=== PATIENT | male | born 1980 | race Caucasian/White ===

== ENCOUNTER 2020-10-15 19:56 | Emergency (ER) | payer BC ==
[2020-10-15] MEDS ORDERED: Lactated Ringers 1,000 ML IV ONE (20:25)
[2020-10-15] MEDS ORDERED: Morphine 4 MG/ML Syringe IVPUSH ONE (20:25)
[2020-10-15] MEDS ORDERED: Piperacillin/Tazobactam 4.5 GM in Sodium Chloride 0.9% 100 ML IV ONE (20:25)
[2020-10-15 20:44] LABS: BLOOD UREA NITROGEN,BUN 11 mg/dL (7.0-18.0); CARBON DIOXIDE,CO2 26.5 mmol/L (21.0-32.0); CHLORIDE,CL 100 mmol/L (98-107); GLUCOSE RANDOM 127 mg/dL (74-106); POTASSIUM,K 4.1 mmol/L (3.5-5.1); SODIUM,NA 135 mmol/L (136-148)
[2020-10-15 21:26] VITALS: BP 126/71; PULSE 86
--- NOTE | 2020-10-15 21:43 | EDM.PDOC ---
ED HPI GENERAL MEDICAL PROBLEM - General Chief Complaint: Abdominal Pain Stated Complaint: CT SCAN SHOWING DIVERTICULITIS, RHULE REFFERAL Time Seen by Provider: 10/15/20 20:07 - History of Present Illness INITIAL COMMENTS - FREE TEXT/NARRATIVE: CHIEF COMPLAINT(S): Abdominal pain HISTORY OF PRESENT ILLNESS: This is a 40-year-old man with a past medical history of diverticulosis who comes to the emergency department with a chief complaint of abdominal pain. The patient states that for the last 7 days he has been experiencing abdominal pain in the left lower quadrant. He states that initially for 2 to 3 days it was intermittent and not as sharp as it is right now. He denies any melena, nausea, hematochezia, hematemesis or bilious emesis. He states that starting on day 4 up until today the pain has become more consta nt. He currently rates his pain as 6 out of 10 and describes it as crampy and sharp. He denies any fevers or chills. He states that the pain is better when he sits still and he did take Advil and was using a heating pad which did help. He denies any radiation of this pain. He states that he went to see his primary care physician today who ordered an outpatient CT and was called outpatient to come to the emergency department as they found a diverticulitis with abscess. He otherwise feels well. Last meal was at 6:45 PM 10/15/20 REVIEW OF SYSTEMS: Constitutional: Denies fever, chills. Eyes: Denies eye pain Ears, Nose, Mouth, & Throat: Denies earache Cardiovascular: Denies chest pain Respiratory: Denies shortness of breath Gastrointestinal: Positive for left lower quadrant pain. Denies nausea, vomiting, diarrhea, hematochezia, melena, hematemesis, bilious emesis Genitourinary: Denies hematuria Skin:Denies a rash MSK: Denies joint pain Neurological: Denies blurred vision Psychiatric: Denies depression PAST MEDICAL HISTORY: As per history of present illness and as reviewed below otherwise noncontributory. SURGICAL HISTORY: As per history of present illness and as reviewed below otherwise noncontributory. SOCIAL HISTORY: As per history of present illness and as reviewed below otherwise noncontributory. FAMILY HISTORY: As per history of present illness and as reviewed below otherwise noncontributory. EXAMINATION OF ORGAN SYSTEMS/BODY AREAS: Constitutional: Blood pressure is 122/80, heart rate 104, respiratory rate 18 with an oxygen saturation of 98% on room air. Temperature 37.6 General: Overall well-appearing man who is in no acute distress Psychiatric: Appropriate mood and affect. Eyes: No scleral icterus or conjunctival erythema ENMT: Moist mucous membranes. No pharyngeal erythema Cardiovascular: Regular, rate, and rhythm. No gallops, murmurs, or rubs. Bilateral upper extremity pulses symmetric and intact. No peripheral edema. No JVD. Respiratory: Lungs clear to auscultation bilaterally. No wheezes, rales, or rhonchi. Gastrointestinal: Soft, nondistended, tenderness to palpation in the left lower quadrant without any rebound or guarding. Negative Molina's and McBurney's. Normoactive bowel sounds Genitourinary: No suprapubic tenderness Musculoskeletal: Normal range of motion. Skin: No lesions or abrasions. Neurological: Alert, GCS 15 MEDICAL DECISION MAKING AND COURSE IN THE ED WITH INTERPRETATION/REVIEW OF DIAGNOSTIC STUDIES: This is a 40-year-old with a past medical history of diverticulosis who comes to the emergency department with 7 days of worsening left lower quadrant abdominal pain with an outpatient CT revealing diverticulitis with abscess. At this time given the tachycardia I did start a septic work-up. We will provide the patient with 1 L of lactated Ringer's bolus and will reevaluate after laboratory analysis as the patient's blood pressure is normal. We will start the patient on Zosyn and this will be given after blood cultures. We will obtain CBC, CMP, INR, lactic acid. We will place the patient on n.p.o. status. I did review the patient's outpatient CT. CT abdomen pelvis with contrast reveals marked focal thickening and pericolonic inflammatory changes of the mid sigmoid colon with diverticulitis with a contained rim of enhancing fluid collection measuring 6 x 2.6 cm likely abscess. There is moderate inflammatory changes in the left pericolic gutter without diffuse free intraperitoneal air. Nonspecific thickening of the bladder with pericystic inflammatory changes. Laboratory: CBC reveals a leukocytosis of 14.83 otherwise unremarkable. INR is normal. CMP reveals hyponatremia at 135 and hyperglycemia at 127 and hypoalbuminemia at 3.0 otherwise unremarkable. Lactic acid was 0.7. Covid Negative Time: 2056 Twelve-lead EKG interpreted by myself. Normal sinus rhythm at a rate of 89beats per minute. Normal axis. OK interval is 135ms. QRS duration is 89ms. ST segments are normal without elevations or depressions. No T wave inversions no Q waves present. Hypertrophy not noted. No prior EKG Interpretation: Sinus rhythm On reevaluation the patient's heart rate had improved and given that there is no lactic acidosis code sepsis was not initiated. No additional IV fluid boluses are needed. I did discuss with patient at this time that I would like to contact our general surgeon about the abscess. He was amenable to this plan. I contacted Dr. Liu who stated that the patient likely needs IR drainage which is not available at our institution. Therefore I contacted [facility] in [place] and spoke with Dr. Christianson who did verify that there is interventional radiology available and accepted the patient for transfer. I did discuss this with the patient and the patient was amenable to this plan. At this time his vitals are normal and the patient requested transferred via private vehicle. I do believe the patient is stable enough for transport via private vehicle. I did discuss with patient that if he were to have any worsening symptoms that there are multiple emergency departments on the way to [facility] that he should stop and get evaluated. Otherwise he is to present to the emergency department. DISPOSITION: Patient was transferred to [facility] in stable condition via private vehicle CONDITION: Fair PROCEDURES: None FINAL IMPRESSION(S)/DIAGNOSES: 1. Acute diverticulitis with abscess Mark Jennings M.D. Abdomen Pain Score (Numeric/FACES): 8 - Related Data Allergies Allergy/AdvReac Type Severity Reaction Status Date / Time No Known Allergies Allergy Verified 10/15/20 20:05 Home Meds: Home Meds Multivitamin/Iron/Folic Acid [Centrum Complete Multivit] 1 tab PO DAILY 07/11/14 [History] Past Medical History HEENT History: Reports: None Cardiovascular History: Reports: None Respiratory History: Reports: None Gastrointestinal History: Reports: None Genitourinary History: Reports: None Musculoskeletal History: Reports: None Neurological History: Reports: None Psychiatric History: Reports: None Endocrine/Metabolic History: Reports: None Insulin Pump Model and Staff Nurse: None Hematologic History: Reports: None Immunologic History: Reports: None Oncologic (Cancer) History: Reports: None Dermatologic History: Reports: None - Infectious Disease History Infectious Disease History: Reports: None Social & Family History - Caffeine Use Caffeine Use: Reports: Coffee - Recreational Drug Use Recreational Drug Use: No ED ROS GENERAL - Review of Systems Review Of Systems: See Below ED EXAM, GENERAL - Physical Exam Exam: See Below Course - Vital Signs Last Recorded V/S: Last Vital Signs Temp 37.7 C 10/15/20 21:26 Pulse 86 10/15/20 21:26 Resp 15 10/15/20 21:26 BP 126/71 10/15/20 21:26 Pulse Ox 100 10/15/20 21:26 - Orders/Labs/Meds Orders: Active Orders 24 hr Category Date Time Status Cardiac Monitoring [RC] . DIRECTED Care 10/15/20 20:25 Active EKG Documentation Completion [RC] STAT Care 10/15/20 20:26 Active Pulse Oximetry [RC] ASDIRECTED Care 10/15/20 20:26 Active CULTURE BLOOD [BC] Stat Lab 10/15/20 20:34 Received CULTURE BLOOD [BC] Stat Lab 10/15/20 20:39 Received Blood Culture x2 Reflex Set [OM.PC] Stat Oth 10/15/20 20:26 Ordered Labs: Laboratory Tests 10/15/20 10/15/20 10/15/20 Range/Units 20:15 20:15 20:15 WBC 14.83 H (4.0-11.0) K/uL RBC 4.71 (4.50-5.90) M/uL Hgb 15.1 (13.0-17.0) g/dL Hct 42.7 (38.0-50.0) % MCV 90.7 (80.0-98.0) fL MCH 32.1 H (27.0-32.0) pg MCHC 35.4 (31.0-37.0) g/dL RDW Std Deviation 45.0 (28.0-62.0) fl RDW Coeff of Juju 13 (11.0-15.0) % Plt Count 429 H (150-400) K/uL MPV 9.70 (7.40-12.00) fL Neut % (Auto) 73.3 (48.0-80.0) % Lymph % (Auto) 14.6 L (16.0-40.0) % Yell % (Auto) 11.6 (0.0-15.0) % Eos % (Auto) 0.3 (0.0-7.0) % Baso % (Auto) 0.2 (0.0-1.5) % Neut # (Auto) 10.9 H (1.4-5.7) K/uL Lymph # (Auto) 2.2 (0.6-2.4) K/uL Yell # (Auto) 1.7 H (0.0-0.8) K/uL Eos # (Auto) 0.0 (0.0-0.7) K/uL Baso # (Auto) 0.0 (0.0-0.1) K/uL Nucleated RBC % 0.0 /100WBC Nucleated RBCs # 0 K/uL INR Sodium 135 L (136-148) mmol/L Potassium 4.1 (3.5-5.1) mmol/L Chloride 100 (98-107) mmol/L Carbon Dioxide 26.5 (21.0-32.0) mmol/L BUN 11 (7.0-18.0) mg/dL Creatinine 1.1 (0.8-1.3) mg/dL Est Cr Clr Drug Dosing 104.56 mL/min Estimated GFR (MDRD) > 60.0 ml/min Glucose 127 H (74-106) mg/dL Lactic Acid 0.7 (0.4-2.0) mmol/L Calcium 8.6 (8.5-10.1) mg/dL Total Bilirubin 0.9 (0.2-1.0) mg/dL AST 29 (15-37) IU/L ALT 51 (14-63) IU/L Alkaline Phosphatase 107 (46-116) U/L Total Protein 7.6 (6.4-8.2) g/dL Albumin 3.0 L (3.4-5.0) g/dL Globulin 4.6 H (2.6-4.0) g/dL Albumin/Globulin Ratio 0.7 L (0.9-1.6) SARS-CoV-2 RNA (CARLOS MANUEL) (NEGATIVE) 10/15/20 10/15/20 Range/Units 20:39 20:58 WBC (4.0-11.0) K/uL RBC (4.50-5.90) M/uL Hgb (13.0-17.0) g/dL Hct (38.0-50.0) % MCV (80.0-98.0) fL MCH (27.0-32.0) pg MCHC (31.0-37.0) g/dL RDW Std Deviation (28.0-62.0) fl RDW Coeff of Juju (11.0-15.0) % Plt Count (150-400) K/uL MPV (7.40-12.00) fL Neut % (Auto) (48.0-80.0) % Lymph % (Auto) (16.0-40.0) % Yell % (Auto) (0.0-15.0) % Eos % (Auto) (0.0-7.0) % Baso % (Auto) (0.0-1.5) % Neut # (Auto) (1.4-5.7) K/uL Lymph # (Auto) (0.6-2.4) K/uL Yell # (Auto) (0.0-0.8) K/uL Eos # (Auto) (0.0-0.7) K/uL Baso # (Auto) (0.0-0.1) K/uL Nucleated RBC % /100WBC Nucleated RBCs # K/uL INR 1.17 Sodium (136-148) mmol/L Potassium (3.5-5.1) mmol/L Chloride (98-107) mmol/L Carbon Dioxide (21.0-32.0) mmol/L BUN (7.0-18.0) mg/dL Creatinine (0.8-1.3) mg/dL Est Cr Clr Drug Dosing mL/min Estimated GFR (MDRD) ml/min Glucose (74-106) mg/dL Lactic Acid (0.4-2.0) mmol/L Calcium (8.5-10.1) mg/dL Total Bilirubin (0.2-1.0) mg/dL AST (15-37) IU/L ALT (14-63) IU/L Alkaline Phosphatase (46-116) U/L Total Protein (6.4-8.2) g/dL Albumin (3.4-5.0) g/dL Globulin (2.6-4.0) g/dL Albumin/Globulin Ratio (0.9-1.6) SARS-CoV-2 RNA (CARLOS MANUEL) NEGATIVE (NEGATIVE) Meds: Medications Discontinued Medications Generic Name Dose Route Start Last Admin Trade Name Tere PRN Reason Stop Dose Admin Lactated Ringer's 1,000 mls @ 999 mls/hr 10/15/20 20:25 10/15/20 20:40 Ringers, Lactated IV 10/15/20 21:25 999 mls/hr .BOLUS ONE Administration Piperacillin Sod/Tazobactam 100 mls @ 100 mls/hr 10/15/20 20:25 10/15/20 20:40 Sod 4.5 gm/ Sodium Chloride IV 10/15/20 21:24 100 mls/hr ONETIME ONE Administration Morphine Sulfate 4 mg 10/15/20 20:25 10/15/20 20:40 Morphine 4 Mg/Ml Syringe IVPUSH 10/15/20 20:26 4 mg ONETIME ONE Administration Departure - Departure Time of Disposition: 21:43 Disposition: DC/Tfer to Acute Hospital 02 Condition: Fair Clinical Impression: Acute diverticulitis, Abscess - Discharge Information *PRESCRIPTION DRUG MONITORING PROGRAM REVIEWED*: No *COPY OF PRESCRIPTION DRUG MONITORING REPORT IN PATIENT CHAKA: No Referrals: Samy Burroughs MD [Primary Care Provider] - Forms: ED Department Discharge Additional Instructions: Please go directly to the emergency department at [facility] in [facility]. Dr. Christianson is awaiting your arrival. Please do not eat anything on your way or drink anything on your way. Sepsis Event Note (ED) - Evaluation Sepsis Screening Result: No Definite Risk - Focused Exam Vital Signs: Vital Signs Temp Pulse Resp BP Pulse Ox 10/15/20 21:26 37.7 C 86 15 126/71 100 10/15/20 20:05 37.6 C 104 H 18 122/80 98 - My Orders Last 24 Hours: My Active Orders 10/15/20 20:25 Cardiac Monitoring [RC] . DIRECTED 10/15/20 20:26 EKG Documentation Completion [RC] STAT Pulse Oximetry [RC] ASDIRECTED Blood Culture x2 Reflex Set [OM.PC] Stat 10/15/20 20:34 CULTURE BLOOD [BC] Stat 10/15/20 20:39 CULTURE BLOOD [BC] Stat - Assessment/Plan Last 24 Hours: My Active Orders 10/15/20 20:25 Cardiac Monitoring [RC] . DIRECTED 10/15/20 20:26 EKG Documentation Completion [RC] STAT Pulse Oximetry [RC] ASDIRECTED Blood Culture x2 Reflex Set [OM.PC] Stat 10/15/20 20:34 CULTURE BLOOD [BC] Stat 10/15/20 20:39 CULTURE BLOOD [BC] Stat
== END 2020-10-15 21:56 ==
LOC: MW.ED 19:56
DX: K57.20 Diverticulitis of large intestine with perforation and abscess without bleeding (principal); Z20.822 Contact with and (suspected) exposure to COVID-19
CPT/HCPCS: 36415; 80053; 83605; 85025; 85610; 87040; 87635; 93005; 96365; 96375; 99285; J2270; J2543; J7120; 99284; U0002